=== PATIENT | female | born 1940 | race Caucasian/White ===

== ENCOUNTER → 2021-01-07 | Outpatient (CLI) | payer MEDICARE, OTHER ==
[~2021-01-07] MED LIST: CRESTOR10 MG PO; ELIQUIS2.5 MG PO; MULTI-VITAMIN1 EACH PO; NORCO 10-325 T1 EACH PO; PRILOSEC10 M1 PO
== END ==
LOC: RAD 09:33
DX: R07.81 Pleurodynia (principal)
CPT/HCPCS: 71045; 71111